=== PATIENT | male | born 1990 | race African-American/Black ===

== ENCOUNTER 2022-06-26 15:50 | Inpatient (IN) | payer OTHER, SELFPAY ==
[2022-06-26 17:14] LABS: Anion Gap 10 mmol/L (10-20); BUN (Urea Nitrogen) 12 mg/dL (8.9-20.6); Calc. Creatinine Clearance 0 mL/min (70-130); Calcium 8.8 mg/dL (7.8-10.44); Carbon Dioxide 25 mmol/L (22-29); Chloride 107 mmol/L (98-107); Estimated GFR 127; Glucose 93 mg/dL (70-105); Potassium 4.1 mmol/L (3.5-5.1); Sodium 138 mmol/L (136-145)
[2022-06-26 17:41] LABS: CK (CPK) 32716 U/L (30-200)
[2022-06-26 19:21] LABS: #Basophils 0.1 thou/uL (0.0-0.2); #Eosinphils 0.3 thou/uL (0.0-0.7); #Monocytes 0.5 thou/uL (0.11-0.59); #Neutrophils 5.6 thou/uL (1.40-6.50); %Basophils 0.6 % (0.0-1.0); %Eosinophils 3.6 % (0.0-10.0); %Lymphocytes 23.9 % (21.0-51.0); %Monocytes 5.4 % (0.0-10.0); %Neutrophils 66.4 % (42.0-75.0); Hemoglobin 14.4 g/dL (14.0-18.0); Mean Corpuscular HGB CONC 34.1 g/dL (32.0-36.0); Mean Corpuscular Hemoglobin 30.5 pg (27.0-31.0); Mean Corpuscular Volume 89.5 fl (78.0-98.0); Mean Platelet Volume 9.7 fL (7.4-10.4); Platelet Count 241 10x3/uL (130-400); RBC Distribution Width 11.7 % (11.5-14.5); Red Blood Cell (RBC) Count 4.71 mill/uL (4.70-6.10); White Blood Cell (WBC) Count 8.4 10x3/uL (4.8-10.8)
[2022-06-26 19:32] LABS: Bacteria/HPF None Seen HPF (None Seen); Bilirubin Negative (Negative); Blood, Urine Trace (Negative); Clarity Clear (Clear); Glucose, Urine (Dipstick) Normal (Negative); Ketone, Urine Negative (Negative); Leukocyte Negative Leu/uL (Negative); Mucous/LPF Rare LPF (<2+); Nitrite Negative (Negative); Protein, Urine (Dipstick) 20 mg/dL (Neg-Trace); RBC/HPF 0-3 HPF (0-3); Specific Gravity, Urine 1.023 (1.002-1.036); Squamous Epithelial None Seen HPF (0-3); Urobilinogen Normal mg/dL (Less than 2); WBC/HPF 0-3 HPF (0-3)
[2022-06-26 19:43] LABS: Albumin 3.6 g/dL (3.5-5.0)
[2022-06-26 19:46] LABS: Globulin 2.4 g/dL (2.4-3.5)
[2022-06-26 19:47] LABS: Bilirubin, Total 0.2 mg/dL (0.2-1.2)
[2022-06-26 19:48] LABS: Alkaline Phosphatase 31 U/L (40-110)
[2022-06-26] MEDS ORDERED: Acetaminophen 650 MG Suppository PR PRN (19:48)
[2022-06-26] MEDS ORDERED: Ondansetron PF 4 MG/2 ML Vial IVP PRN (19:48)
[2022-06-26] MEDS ORDERED: Acetaminophen 325 MG TAB PO PRN (19:48)
[2022-06-26] MEDS ORDERED: Ondansetron ODT 4 MG TAB PO PRN (19:48)
[2022-06-26 19:51] LABS: ALT (SGPT) 218 U/L (8-55); AST (SGOT) 445 U/L (5-34)
[2022-06-26] MEDS: Sodium Chloride 0.9% 1,000 ML IV SCH (23:59)
[2022-06-27 01:10] VITALS: BMI 36.1
[2022-06-27] MEDS: Sodium Chloride 0.9% 1,000 ML IV SCH ×6 (04:52→22:42)
[2022-06-27 06:32] LABS: #Basophils 0.1 thou/uL (0.0-0.2); #Eosinphils 0.3 thou/uL (0.0-0.7); #Lymphocytes 2.5 thou/uL (1.20-3.40); #Monocytes 0.5 thou/uL (0.11-0.59); #Neutrophils 3.8 thou/uL (1.40-6.50); %Eosinophils 4.8 % (0.0-10.0); %Lymphocytes 34.5 % (21.0-51.0); %Monocytes 7.2 % (0.0-10.0); %Neutrophils 52.5 % (42.0-75.0); Hemoglobin 13.8 g/dL (14.0-18.0); Mean Corpuscular HGB CONC 34.1 g/dL (32.0-36.0); Mean Corpuscular Hemoglobin 31.3 pg (27.0-31.0); Mean Corpuscular Volume 91.6 fl (78.0-98.0); Mean Platelet Volume 8.3 fL (7.4-10.4); Platelet Count 223 10x3/uL (130-400); RBC Distribution Width 11.6 % (11.5-14.5); Red Blood Cell (RBC) Count 4.43 mill/uL (4.70-6.10); White Blood Cell (WBC) Count 7.1 10x3/uL (4.8-10.8)
[2022-06-27 06:50] LABS: Anion Gap 10 mmol/L (10-20); BUN (Urea Nitrogen) 8 mg/dL (8.9-20.6); Calc. Creatinine Clearance 249 mL/min (70-130); Calcium 8.1 mg/dL (7.8-10.44); Carbon Dioxide 22 mmol/L (22-29); Chloride 110 mmol/L (98-107); Estimated GFR 130; Glucose 85 mg/dL (70-105); Potassium 4.2 mmol/L (3.5-5.1); Sodium 138 mmol/L (136-145)
[2022-06-27 07:16] LABS: CK (CPK) 18326 U/L (30-200)
[2022-06-28] MEDS: Sodium Chloride 0.9% 1,000 ML IV SCH ×5 (04:36→22:06)
[2022-06-28 06:14] LABS: Anion Gap 10 mmol/L (10-20); BUN (Urea Nitrogen) 8 mg/dL (8.9-20.6); Calc. Creatinine Clearance 249 mL/min (70-130); Calcium 8.2 mg/dL (7.8-10.44); Carbon Dioxide 24 mmol/L (22-29); Chloride 109 mmol/L (98-107); Estimated GFR 130; Glucose 86 mg/dL (70-105); Sodium 139 mmol/L (136-145)
[2022-06-28 06:40] LABS: CK (CPK) 10533 U/L (30-200)
[2022-06-29] MEDS: Sodium Chloride 0.9% 1,000 ML IV SCH ×2 (04:04→08:37)
[2022-06-29 08:54] VITALS: BP 142/65; TEMP 98
== END 2022-06-29 10:45 | DRG 566 ==
LOC: ERS 15:50 → SURG B 19:39 → EEVIPCON 19:39
PROVIDERS: ADMIT Student in an Organized Health Care Education/Training Program; ATTEND Family Medicine
DX: T79.6XXA Traumatic ischemia of muscle, initial encounter (principal); F17.210 Nicotine dependence, cigarettes, uncomplicated; Z88.0 Allergy status to penicillin
CPT/HCPCS: 36415; 80048; 81003; 81015; 82550; 85025; 99284; J7050